=== PATIENT | female | born 1960 | race Caucasian/White ===

== ENCOUNTER 2017-12-09 17:26 | Emergency (ER) | payer SELFPAY ==
[2017-12-09] MEDS ORDERED: Meclizine HCl 25 MG TAB ONE (18:01)
--- NOTE | 2017-12-09 19:28 | CT ---
HEAD CT WITHOUT CONTRAST: HISTORY: Dizziness. COMPARISON: None. TECHNIQUE: A noncontrast head CT is performed from the skull base to the skull vertex. FINDINGS: No parenchymal hemorrhage. No extraaxial hematoma. No midline shift. Basilar cisterns are patent. Age appropriate atrophy. Cortical monae white matter differentiation is preserved. The ventricles and sulci are patent and symmetric. The calvarium is intact. Adequate aeration of the mastoid air cells. Minimal paranasal sinus diseas e. IMPRESSION: No acute intracranial process. POS: [facility]
== END 2017-12-09 18:46 | disposition home or self-care (01) ==
LOC: MADERS 17:26
DX: H83.09 Labyrinthitis, unspecified ear (principal); E03.9 Hypothyroidism, unspecified; E78.5 Hyperlipidemia, unspecified; I10 Essential (primary) hypertension; F32.9 Major depressive disorder, single episode, unspecified; Z79.82 Long term (current) use of aspirin; Z79.899 Other long term (current) drug therapy
CPT/HCPCS: 70450

== ENCOUNTER 2018-03-29 07:06 | Emergency (ER) | payer SELFPAY ==
[2018-03-29] MEDS ORDERED: predniSONE 20 MG TAB ONE (07:50)
[2018-03-29] MEDS ORDERED: Cephalexin 500 MG CAP ONE (07:50)
== END 2018-03-29 07:53 | disposition home or self-care (01) ==
LOC: MADERS 07:06
DX: L30.9 Dermatitis, unspecified (principal); E03.9 Hypothyroidism, unspecified; E78.5 Hyperlipidemia, unspecified; F32.9 Major depressive disorder, single episode, unspecified; I10 Essential (primary) hypertension; G47.30 Sleep apnea, unspecified; Z79.82 Long term (current) use of aspirin; Z79.899 Other long term (current) drug therapy
CPT/HCPCS: 99282; J7506